=== PATIENT | female | born 1980 | race Caucasian/White ===

== ENCOUNTER → 2018-11-30 17:00 | Outpatient (CLI) | payer OTHER, SELFPAY ==
--- NOTE | 2018-11-30 17:00 | FLU_PTH ---
PATIENT: LEDY DIETRICH [id number] AGE/SX: 44/F ROOM: RE11/30/[address]: Dr. Kevin Sheets MD : 1980 BED: DIS: SPEC #: [id number] RECD: 11/30/18 17:46 STATUS: JOSE CARLOS GEORGINA #: [id number] RENITA: 11/30/18 17:[address]: Kevin Sheets DEPT: CYTOLOGY RECD BY: Juan Luis Love Tissues: A - Thyroid gland, NOS B - Thyroid gland, NOS Procedures: Special Stain Group II Surgery Specimen Level IV Cytospin Fluid HEADER OPERATION: Right thyroid FNA; Left thyroid FNA PRE-OP DIAGNOSIS: Dominant nodule in Katherin's TISSUE SUBMITTED: A - FNA, right thyroid fluid for cytology, B - FNA, left thyroid fluid for cytology DIAGNOSIS CYTOLOGY A. Right thyroid nodule fluid for cytology, FNA (cytospin and cell block): Consistent with chronic lymphocytic thyroiditis. Adequate for evaluation. See cytology study and comment. B. Left thyroid nodule fluid for cytology, FNA (cytospin and cell block): Consistent with chronic lymphocytic thyroiditis. Adequate for evaluation. See cytology study and comment. SJ:rg 12/02/18 COMMENT Correlation with clinical, radiologic findings and appropriate follow up are necessary. CYTOLOGY STUDY Slides are reviewed. A. The specimen is paucicellular, however, adequate for evaluation and consists of benign follicular cells with focal H?rthle cell features and lymphocytes. B. The specimen is cellular and consists of benign follicular cells with H?rthle cell features and lymphocytes. CYTOLOGY GROSS A - Received is 38 ml of clear colorless fluid labeled with the patient's name and and designated per the requisition as right thyroid. Submitted for cytology preparation including cell block. B - Received is 40 ml of clear colorless fluid labeled with the patient's name and and designated per the requisition as left thyroid. Submitted for cytology preparation including cell block. / 12/01/18 TC:3 CPT: 22567 x2, 72225 x2
== END ==
PROVIDERS: Referring Provider Otolaryngology; Visit Provider Otolaryngology
DX: E04.1 Nontoxic single thyroid nodule (principal); E06.3 Autoimmune thyroiditis
CPT/HCPCS: 88108; 88305; 88313

== ENCOUNTER 2020-10-10 15:30 | Observation (INO) | payer OTHER, SELFPAY ==
[2019-04-30 07:47] VITALS: BMI 38.2
[2020-10-10] VITALS (9 sets, daily range): BP systolic 82–139; BP diastolic 50–88; PULSE 77–101; RESP 15–80; TEMP 35.6–36.9; O2SAT 95–100; BMI 44.2; BMI 42.8
--- NOTE | 2020-10-10 15:44 | CT_ITS ---
STUDY: CT ABDOMEN AND PELVIS WITH CONTRAST REASON FOR EXAM: Female, 40 years old. Right lower quadrant pain nausea vomiting elevated white count RADIATION DOSAGE (If Supplied By Facility): CTDIvol = ( 15.19 ) mGy, DLP = ( 1343.07 ) mGycm TECHNIQUE: CT images were obtained from the dome of the diaphragm to the symphysis pubis without oral contrast. Oral and amp; IV Gastrografin and amp; 100mL Isovue-300 was administered. Sagittal and coronal images were reconstructed. Individualized dose optimization techniques were used for this CT. COMPARISON: None. FINDINGS: The visualized lung bases are unremarkable. The visualized portions of the heart are within normal limits. Normal liver. Normal gallbladder and extrahepatic biliary system. Normal spleen. Normal pancreas. Normal bilateral adrenal glands. Normal right kidney. Normal left kidney. Appendix is inflamed with mild surrounding mesenteric inflammation without fluid collections. Normal abdominal aorta. Normal inferior vena cava. Normal retroperitoneum. Normal urinary bladder. Normal abdominal wall. Normal osseous structures. CT/Abdomen/Pelvis WITH Contrast IMPRESSION: 1. Early appendicitis, no perforation or abscess. Electronically Signed: Vel Zuluaga, at 18:26 EST Tel , Service support ,
--- NOTE | 2020-10-10 15:46 | ED.VIS.GEN ---
History of Present Illness Chief Complaint: Abd Pain Informant: Patient Narrative: 40-year-old female presenting for the evaluation abdominal pain. Patient states that she woke today around 5 feeling fine. She got a aerobic workout and finished around 530. She states that around 7 she began to feel nauseated then developed pain around her umbilicus that has now migrated to the right lower quadrant. She notes vomiting. She notes some anorexia. No fevers. No prior abdominal surgeries. No history of ovarian cyst. No urinary symptoms. Past Medical History - Allergies and Home Meds Allergies/Adverse Reactions: Allergies Penicillins Allergy (Unknown, Verified 10/10/20 15:30) other shellfish derived Allergy (Unknown, Verified 10/10/20 15:30) Other Past Medical History: None Smoking Status: Never smoker Drugs: None - Family History Maternal Family History: Reports: No pertinent history Review of Systems General: Denies: Chills, Fever, Sweats Eyes: Denies: Visual changes - bilaterally, Diplopia ENT: Denies: Rhinorrhea, Sore throat Cardiovascular: Denies: Chest pain, Palpitations Respiratory: Denies: Dyspnea, Cough, Dyspnea on exertion Gastrointestinal: Reports: Abdominal pain, Nausea, Vomiting. Denies: Diarrhea, Melena, Hematochezia Genitourinary: Denies: Dysuria, Hematuria, Frequency Musculoskeletal: Denies: Back pain, Extremity Pain Skin: Denies: Rash, Wounds Neurological: Denies: Headache, Weakness, Numbness Physical Exam Vital Signs/Narrative: Vital Signs Temp Pulse Resp BP Pulse Ox 10/10/20 15:31 96.0 F L 86 16 139/88 H 96 Inital Vital Signs reviewed: Yes General: Well nourished, Well developed, No Acute Distress Head: Normocephalic, Atraumatic Eyes: Perrl, EOMI ENT: Moist mucous membranes, No rhinorrhea Neck: Supple, Nontender Cardiovascular: Regular rate, Regular rhythm, No murmurs Respiratory: No distress, CTA bilaterally, Chest nontender Abdomen: Soft, Nondistended, Normal bowel sounds, Tender - RLQ, Guarding Back: Nontender, Normal Inspection Extremities: Nontender, No edema Skin: Normal color, No rash Neurological: Alert, Oriented x3, Cranial nerves II-XII grossly intact, Normal Strength, Normal Sensation Psychological: Normal affect, Normal Mood Diagnostic/Tx/Re-eval Clinical Impression(s) from Imaging Studies Abdomen/Pelvis CT 10/10/20 15:44 IMPRESSION: 1. Early appendicitis, no perforation or abscess. Electronically Signed: Vel Zuluaga, at 18:26 EST Tel , Service support , Laboratory Last Values WBC 17.7 K/mm3 (4.4-11.0) H 10/10/20 15:50 RBC 4.50 M/mm3 (4.2-5.4) 10/10/20 15:50 Hgb 13.0 g/dL (12.0-15.0) 10/10/20 15:50 Hct 39.2 % (37-47) 10/10/20 15:50 MCV 87.1 fL (81-99) 10/10/20 15:50 MCH 28.9 pg (27.0-32.0) 10/10/20 15:50 MCHC 33.2 g/dL (32-36) 10/10/20 15:50 RDW Std Deviation 39.8 fl (35.1-43.9) 10/10/20 15:50 RDW Coeff of Sheree 12.5 % (11.6-14.6) 10/10/20 15:50 Plt Count 318 K/mm3 (150-450) 10/10/20 15:50 MPV 10.1 fl (6.2-12.0) 10/10/20 15:50 Immature Gran % (Auto) 0.500 % (0.0-0.9) 10/10/20 15:50 Neut % (Auto) 84.0 % (47-70) H 10/10/20 15:50 Lymph % (Auto) 9.6 % (19-41) L 10/10/20 15:50 [place] % (Auto) 5.4 % (0-10) 10/10/20 15:50 Eos % (Auto) 0.2 % (0-5) 10/10/20 15:50 Baso % (Auto) 0.3 % (0-1) 10/10/20 15:50 Absolute Neuts (auto) 14.9 X10^3/uL (2.0-7.7) H 10/10/20 15:50 Absolute Lymphs (auto) 1.69 X10^3/uL (0.83-4.51) 10/10/20 15:50 Nucleated RBC % 0 % (0-5) 10/10/20 15:50 Sodium 138 mmol/L (136-145) 10/10/20 15:50 Potassium 3.9 mmol/L (3.5-5.1) 10/10/20 15:50 Chloride 105 mmol/L (98-107) 10/10/20 15:50 Carbon Dioxide 27.0 mmol/L (21.0-32.0) 10/10/20 15:50 Anion Gap 6 (5-15) 10/10/20 15:50 BUN 9 mg/dL (7-18) 10/10/20 15:50 Creatinine 0.83 mg/dL (0.55-1.02) 10/10/20 15:50 Estim Creat Clear Calc 96.04 ml/min 10/10/20 15:50 Est GFR (MDRD) Af Amer 99 mL/min (>60) 10/10/20 15:50 Est GFR (MDRD) Non-Af 82 mL/min (>60) 10/10/20 15:50 BUN/Creatinine Ratio 10.8 RATIO (10-20) 10/10/20 15:50 Glucose 101 mg/dL (74-106) 10/10/20 15:50 Calcium 8.9 mg/dL (8.5-10.1) 10/10/20 15:50 Total Bilirubin 0.40 mg/dL (0.20-1.00) 10/10/20 15:50 Direct Bilirubin 0.16 mg/dL (0.00-0.30) 10/10/20 15:50 AST 11 U/L (15-37) L 10/10/20 15:50 ALT 23 U/L (13-56) 10/10/20 15:50 Alkaline Phosphatase 58 U/L (45-117) 10/10/20 15:50 Total Creatine Kinase 104 U/L (26-192) 10/10/20 15:50 Total Protein 7.5 g/dL (6.4-8.2) 10/10/20 15:50 Albumin 3.7 g/dL (3.2-5.0) 10/10/20 15:50 Globulin 3.8 g/dL (2.2-4.2) 10/10/20 15:50 Lipase 242 U/L (73-393) 10/10/20 15:50 Serum , Qual NEGATIVE Negative 10/10/20 15:50 Urine Color Yellow (Yellow) 10/10/20 16:00 Urine Clarity Clear (Clear) 10/10/20 16:00 Urine pH 8.0 (5.0 - 8.0) 10/10/20 16:00 Ur Specific [place] 1.010 (1.002-1.030) 10/10/20 16:00 Urine Protein Negative mg/dl (Negative) 10/10/20 16:00 Urine Glucose (UA) Normal mg/dl (Normal) 10/10/20 16:00 Urine Ketones Negative mg/dl (Negative) 10/10/20 16:00 Urine Occult Blood Negative /ul (Negative) 10/10/20 16:00 Urine Nitrite Negative (Negative) 10/10/20 16:00 Urine Bilirubin Negative mg/dL (Negative) 10/10/20 16:00 Urine Urobilinogen Normal mg/dl (Normal) 10/10/20 16:00 Ur Leukocyte Esterase Negative /ul (Negative) 10/10/20 16:00 Urine RBC 0 SEEN /hpf (0-5) 10/10/20 16:00 Urine WBC 0 SEEN /hpf (0-5) 10/10/20 16:00 Ur Squamous Epith Cells 0-5 SEEN /hpf (5-10) 10/10/20 16:00 Urine Bacteria 0 SEEN /hpf (None Seen) 10/10/20 16:00 Urine Mucus 0 SEEN /hpf (<or=2+) 10/10/20 16:00 - Medical Decision Making Patient received IV fluids. White count shows a leukocytosis of 17. CT the pelvis with oral and IV contrast was ordered and upon my review demonstrates an appendicolith with early appendicitis. Patient was not initially given pain medicine because she is driving and did not have another way home. Now that she will be admitted I will order pain medication. I will also order Cipro and Flagyl preoperatively due to her pen allergy. Patient was assessed by surgery here in the department by Dr. Mcdaniels ED Disposition - Plan for ED Patient: Disposition: [facility] Diagnosis: Acute appendicitis
[2020-10-10] MEDS: Ondansetron 4 MG/2 ML Vial IV (15:59)
[2020-10-10] MEDS: 0.9% Normal Saline 1,000 ML 999 ML IV (15:59)
[2020-10-10 16:02] LABS: Absolute Lymphocyte Count 1.69 X10^3/uL (0.83-4.51); Absolute Neutrophil Count 14.9 X10^3/uL (2.0-7.7); Basophil# 0.06 X10^3/uL; Basophil% 0.3 % (0-1); Eosinophil# 0.04 X10^3/uL; Eosinophils% 0.2 % (0-5); Hematocrit 39.2 % (37-47); Lymphocyte # 1.69 X10^3/ul (4.0); Lymphocyte % 9.6 % (19-41); Mean Corp Hgb Conc 33.2 g/dL (32-36); Mean Corpuscular Hgb 28.9 pg (27.0-32.0); Mean Corpuscular Volume 87.1 fL (81-99); Mean Platelet Vol. 10.1 fl (6.2-12.0); Monocyte# 0.95 X10^3/uL; Monocyte% 5.4 % (0-10); NRBC Flagged by Analyzer 0 % (0-5); Neutrophil # 14.86 X10^3/uL (2.7-7.7); Platelet Count 318 K/mm3 (150-450); RBC Distribution Width CV 12.5 % (11.6-14.6); RBC Distribution Width SD 39.8 fl (35.1-43.9); White Blood Count 17.7 K/mm3 (4.4-11.0)
[2020-10-10 16:07] LABS: Bacteria 0 SEEN /hpf (None Seen); Mucous, Urine 0 SEEN /hpf (<or=2+); Red Blood Cells-Urine 0 SEEN /hpf (0-5); White Blood Cells 0 SEEN /hpf (0-5)
[2020-10-10 16:16] LABS: Color, Urine Yellow (Yellow); Glucose, Dipstick Normal (Normal); Ketone-Dipstick Negative (Negative); Leukocyte Esterase-Dipstick Negative /ul (Negative); Nitrite-Dipstick Negative (Negative); Occult Blood-Urine Negative /ul (Negative); Protein-Dipstick Negative (Negative); Urine Bilirubin Dipstick Negative (Negative); Urine Clarity Clear (Clear); Urine Urobilinogen Normal (Normal)
[2020-10-10 16:17] LABS: AST(SGOT) 11 U/L (15-37); Alanine Aminotransfer ALT/SGPT 23 U/L (13-56); Albumin, Serum 3.7 g/dL (3.2-5.0); Alkaline Phosphatase 58 U/L (45-117); Anion Gap 6 (5-15); BUN 9 mg/dL (7-18); BUN/Creat Ratio 10.8 RATIO (10-20); Bilirubin, Direct 0.16 mg/dL (0.00-0.30); Calcium,Total 8.9 mg/dL (8.5-10.1); Chloride 105 mmol/L (98-107); Creatinine, Serum 0.83 mg/dL (0.55-1.02); EST Glomerular Filtration Rate 82 mL/min (>60); Est Glom Filt Rate - Afr Amer 99 mL/min (>60); Estimated Creatinine Clearance 96.04 ml/min; Globulin 3.8 g/dL (2.2-4.2); Glucose 101 mg/dL (74-106); Lipase 242 U/L (73-393); Potassium 3.9 mmol/L (3.5-5.1); Protein, Total 7.5 g/dL (6.4-8.2); Sodium Level 138 mmol/L (136-145)
[2020-10-10 16:22] LABS: Squamous Epithelial Cells - UA 0-5 SEEN /hpf (5-10)
[2020-10-10 16:40] LABS: Internal QC Validated? YES +Cl - CLEAR BKGD
[2020-10-10 16:41] LABS: Pregnancy, Serum, hCG Quali. NEGATIVE Negative
[2020-10-10 17:28] LABS: CPK Total, Creatine Kinase 104 U/L (26-192)
--- NOTE | 2020-10-10 18:11 | HP.PCM_ITS ---
History of Present Illness Date of Admission: 10/10/20 The patient is a 40 year old F return to the ER due to periumbilical pain that went to the right lower quadrant started at 7 AM this morning got worse at 9 AM had nausea and vomiting. Patient's pain continued to get worse. Patient CT abdomen pelvis does show a thickened appendix read currently pending. Patient has a white blood count of 17.7. Patient is receiving antibiotics in the ER Cipro/Flagyl IV. 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 Allergies Penicillins Allergy (Unknown, Verified 10/10/20 15:30) other shellfish derived Allergy (Unknown, Verified 10/10/20 15:30) Other Home Medications: Ambulatory Orders Medication Instructions Recorded NK 10/10/20 Surgical History: no surgical history Smoking Status: Never smoker Drugs: None - *Family History Maternal History Items: No pertinent history Review of Systems Constitutional: Reports: Anorexia Cardiovascular: Denies: Chest Pain Respiratory: Denies: Cough VTE Information - Inpt Only VTE Present on Admission: Yes VTE Mechan Device Prophylaxis: SCD's Patient Problems: Active and Suspected Problems (Last Updated 04/30/19 @ 07:51 by Vangie Sutton) Acute appendicitis (Acute) - Physical Exam Vitals/I&O's: Vital Signs Temp Pulse Resp BP Pulse Ox 96.0 F L 86 16 139/88 H 96 10/10/20 15:31 10/10/20 15:31 10/10/20 15:31 10/10/20 15:31 10/10/20 15:31 Oxygen Delivery Method Room Air Weight: 299 lb 9.731 oz Body Mass Index (BMI) 44.2 General: Alert, Oriented x3, Cooperative, - - in pain Lungs: Normal air movement Abdomen: Soft, Non-Distended, Obese, Tender - Right lower quadrant, positive Rovsing sign, no peritoneal signs Extremities: No clubbing, No cyanosis, No edema Neurological: Cranial nerves II-XII grossly intact Psych/Mental Status: Normal Affect Laboratory Results 10/10/20 15:50: WBC 17.7 H, RBC 4.50, Hgb 13.0, Hct 39.2, MCV 87.1, MCH 28.9, MCHC 33.2, RDW Std Deviation 39.8, RDW Coeff of Sheree 12.5, Plt Count 318, MPV 10.1, Immature Gran % (Auto) 0.500, Neut % (Auto) 84.0 H, Lymph % (Auto) 9.6 L, [place] % (Auto) 5.4, Eos % (Auto) 0.2, Baso % (Auto) 0.3, Absolute Neuts (auto) 14.9 H, Absolute Lymphs (auto) 1.69, Nucleated RBC % 0 10/10/20 15:50: Sodium 138, Potassium 3.9, Chloride 105, Carbon Dioxide 27.0, Anion Gap 6, BUN 9, Creatinine 0.83, Estim Creat Clear Calc 96.04, Est GFR (MDRD) Af Amer 99, Est GFR (MDRD) Non-Af 82, BUN/Creatinine Ratio 10.8, Glucose 101, Calcium 8.9, Total Bilirubin 0.40, Direct Bilirubin 0.16, AST 11 L, ALT 23, Alkaline Phosphatase 58, Total Protein 7.5, Albumin 3.7, Globulin 3.8, Lipase 242 10/10/20 15:50: Serum , Qual NEGATIVE 10/10/20 15:50: Total Creatine Kinase 104 10/10/20 16:00: Urine Color Yellow, Urine Clarity Clear, Urine pH 8.0, Ur Specific [place] 1.010, Urine Protein Negative, Urine Glucose (UA) Normal, Urine Ketones Negative, Urine Occult Blood Negative, Urine Nitrite Negative, Urine Bilirubin Negative, Urine Urobilinogen Normal, Ur Leukocyte Esterase Negative, Urine RBC 0 SEEN, Urine WBC 0 SEEN, Ur Squamous Epith Cells 0-5 SEEN, Urine Bacteria 0 SEEN, Urine Mucus 0 SEEN Current Medications Sodium Chloride () 1,000 mls @ 250 mls/hr IV .Q4H LINA Ciprofloxacin (Cipro) 400 mg in 200 mls @ 200 mls/hr IV X1 ONE Stop: 10/10/20 19:08 Metronidazole (Flagyl) 500 mg in 100 mls @ 100 mls/hr IV X1 ONE Stop: 10/10/20 19:08 Assessment/Plan All Active Problems (Last Updated 04/30/19 @ 07:51 by Vangie Sutton) Acute appendicitis (Acute) Cat bite of index finger (Acute) 40-year-old female with acute appendicitis, leukocytosis 1. Discussed procedure laparoscopic appendectomy, possible open, possible bowel resection along with the risk but not limited to bleeding, infection/abscess, injury to another organ (small bowel, colon, etc.), adhesion, hernia at incision sites, and anesthesia. Patient no further questions this time. Covid test is pending Dilia Mcdaniels M.D. Pager: [phone] [facility] [address] [place] [address], [address] [place] [address] Office: [phone]
[2020-10-10] MEDS: 0.9% Normal Saline 1,000 ML 250 ML IV (18:17)
[2020-10-10] MEDS: Morphine 4 MG/ML Syringe IV (18:17)
--- NOTE | 2020-10-10 18:19 | NURSING ---
MED SURG, AFTER SURGERY OBS ROBOTHEM APPENDICITIS
[2020-10-10] MEDS: Ciprofloxacin 400 MG/200 ML BAG 200 MG IV (18:31)
--- NOTE | 2020-10-10 19:15 | APP_PTH ---
PATIENT: LEDY DIETRICH LOC: [facility] U#:[id number] AGE/SX: 40/F ROOM: AR314 RE10/10/[address]: Dr. Dilia Mcdaniels MD : 1980 BED: 1 DIS: 10/11/2020 SPEC #: [id number] RECD: 10/11/20 07:34 STATUS: JOSE CARLOS REFaye #: [id number] RENITA: 10/10/20 19:[address]: Dilia Mcdaniels DEPT: SURGICAL PATHOLOGY RECD BY: Shreya Zhou ENTERED: 10/11/20 08:25 SP TYPE: APPENDIX OTHR DR: No Primary Care Phys Tissues: Appendix, NOS Procedures: Surgery Specimen Level III HEADER OPERATION: Laparoscopic appendectomy PRE-OP DIAGNOSIS: Acute appendicitis TISSUE SUBMITTED: Appendix MICROSCOPIC DIAGNOSIS Appendix, appendectomy: Acute appendicitis. Acute serositis. AM:eliu 10/12/2020 MICROSCOPIC DESCRIPTION Slides are reviewed. GROSS DESCRIPTION Received in fixative is one container labeled with the patient's name and designated appendix. The specimen consists of an L-shaped appendix measuring 6 cm in length and up to 1 cm in diameter. The attached periappendiceal adipose tissue measures up to 1.5 cm in width. The serosa surface shows focal area of aguero, purulent exudate. No obvious perforation is identified. The lumen contains fecal material. No fecalith is identified. Clock Mechanic sections are submitted in one cassette. / SJ:rg 10/11/2020 :2 [facility]: [id number]
[2020-10-10] MEDS: metroNIDAZOLE 500 MG/100 ML BAG 100 MG IV (19:40)
--- NOTE | 2020-10-10 20:25 | OP.PCM_ITS ---
Report of Operation Date of Procedure: 10/10/20 Pre-Operative Diagnosis: Acute appendicitis Post-Operative Diagnosis: Acute perforated appendicitis Surgery/Procedure Performed:: Laparoscopic appendectomy convenience store clerk: Zainab Avalos Type of Anesthesia:: General/Supplemental Anesthesiologist: Carrie Yanes Special Medications: Cipro 400 mg IV x1 and Flagyl 500 mg IV x1 given in ER due to acute appendicitis Specimen's removed: Appendicitis Estimated Blood Loss (mL): 10 cc Fluids Replaced: 500 cc Description of Procedure: Indications: 40-year-old female presented to the ER with new right lower quadrant pain this morning. On workup she was found to have acute appendicitis on CT and a leukocytosis of 17. Patient was started on antibiotics in the ER for acute appendicitis-Cipro/Flagyl IV Description of the procedure: The patient was placed on operating table in supine position. General anesthesia was induced. A timeout was completed verifying correct patient, procedure, position and special equipment prior to beginning procedure. Abdomen was prepped and draped in usual sterile fashion. Incision was made in the natural skin line above the umbilicus with a 15 blade scalpel. The fascia was elevated and incised. Entry into the peritoneum was confirmed visually and no bowel was noted in the vicinity of the incision. The Olguin trocar was placed under direct vision. Abdomen insufflated with a pressure of 12-15 mmHg. Patient tolerated insertion well. The scope was inserted and the abdomen inspected. No injuries from initial trocar placement were noted. Minimal amount of fluid was seen in the right lower quadrant. An direct visualization 2 -5 mm trocars were placed one above the symphysis pubis and below the hairline and one in the left lower quadrant lateral to the rectus muscle. Care is taken to avoid injury to the bladder and inferior epigastric vessels. The table was placed in Trendelenburg position with the right side elevated. The appendix was grasped with atraumatic grasper and elevated. It was noted to be inflamed and perforated with purulent material, which was suctioned. A window was developed in the mesoappendix at the point between the base of the appendix and the cecum. An endoscopic 45 mm linear cutting stapler blue load was then used to divide and staple the base of the appendix. It was used to divide the mesoappendix. The appendix was withdrawn into the Olguin trocar after being placed endoscopically retrieval bag. Appendix was sent to pathology. The appendiceal stump was then irrigated and hemostasis was assured. Secondary trochars were removed under direct visualization. No bleeding was noted trocar sites. The laparoscope withdrawn and the umbilical trocar removed. The abdomen was allowed to collapse. Local anesthesia of 15 mL of 0.5% Marcaine was used at the incision sites. The umbilical trocar site was closed with the [id number] 0 Vicryl suture. The skin was closed up to clear sutures of 4-0 Monocryl and Steri-Strips. The patient was extubated. The patient tolerated the procedure well and was taken to the postanesthesia care unit in satisfactory condition. - Complications none
[2020-10-10] MEDS: Bupiv/Epi 0.5% Mpf 30 ML Vial (20:27)
[2020-10-10] MEDS: Lactated Ringers 1,000 ML 125 ML IV (22:36)
[2020-10-11 01:45] VITALS: BP 105/67; PULSE 70; RESP 16; TEMP 36.7; O2SAT 93
[2020-10-11] MEDS: Ciprofloxacin 400 MG/200 ML BAG 200 MG IV (05:51)
[2020-10-11] MEDS: metroNIDAZOLE 500 MG/100 ML BAG 100 MG IV (06:55)
[2020-10-11] MEDS: Lactated Ringers 1,000 ML 125 ML IV (06:58)
[2020-10-11 07:00] VITALS: BP 132/71; PULSE 70; RESP 16; TEMP 36.3; O2SAT 93
[2020-10-11 07:59] VITALS: BP 120/65; PULSE 56; RESP 18; TEMP 37; O2SAT 93
--- NOTE | 2020-10-11 08:47 | PCM.PN.SRG ---
Patient Problems: Active and Suspected Problems (Last Updated 04/30/19 @ 07:51 by Vangie Sutton) Acute appendicitis (Acute) Subjective: Pt doing well, jackson PO, denies need for pain meds - Physical Exam Vitals/I&O's: Vital Signs Temp Pulse Resp BP Pulse Ox 98.6 F 56 L 18 120/65 93 10/11/20 07:59 10/11/20 07:59 10/11/20 07:59 10/11/20 07:59 10/11/20 07:59 Oxygen Flow Rate (L/min) 2 Oxygen Delivery Method Room Air Weight: 290 lb Body Mass Index (BMI) 42.8 Intake and Output for Last 24 Hours 10/09/20 10/10/20 10/11/20 23:59 23:59 23:59 Intake Total 2300 / 2300 1200 / 1200 Output Total 1000 / 1000 Balance 2300 / 2300 200 / 200 General: Alert, Oriented x3, Cooperative, No apparent distress Lungs: Normal air movement Cardiovascular: Regular rate Abdomen: Soft, Non-Distended, Tender - at incisions- dressed c/d/i, no PS Microbiology Past 72 Hours 10/10/20 Unknown Mucosa - Nose SARS-CoV-2 Antigen (Rapid) - Final Laboratory Results 10/10/20 15:50: WBC 17.7 H, RBC 4.50, Hgb 13.0, Hct 39.2, MCV 87.1, MCH 28.9, MCHC 33.2, RDW Std Deviation 39.8, RDW Coeff of Sheree 12.5, Plt Count 318, MPV 10.1, Immature Gran % (Auto) 0.500, Neut % (Auto) 84.0 H, Lymph % (Auto) 9.6 L, [place] % (Auto) 5.4, Eos % (Auto) 0.2, Baso % (Auto) 0.3, Absolute Neuts (auto) 14.9 H, Absolute Lymphs (auto) 1.69, Nucleated RBC % 0 10/10/20 15:50: Sodium 138, Potassium 3.9, Chloride 105, Carbon Dioxide 27.0, Anion Gap 6, BUN 9, Creatinine 0.83, Estim Creat Clear Calc 96.04, Est GFR (MDRD) Af Amer 99, Est GFR (MDRD) Non-Af 82, BUN/Creatinine Ratio 10.8, Glucose 101, Calcium 8.9, Total Bilirubin 0.40, Direct Bilirubin 0.16, AST 11 L, ALT 23, Alkaline Phosphatase 58, Total Protein 7.5, Albumin 3.7, Globulin 3.8, Lipase 242 10/10/20 15:50: Serum , Qual NEGATIVE 10/10/20 15:50: Total Creatine Kinase 104 10/10/20 16:00: Urine Color Yellow, Urine Clarity Clear, Urine pH 8.0, Ur Specific [place] 1.010, Urine Protein Negative, Urine Glucose (UA) Normal, Urine Ketones Negative, Urine Occult Blood Negative, Urine Nitrite Negative, Urine Bilirubin Negative, Urine Urobilinogen Normal, Ur Leukocyte Esterase Negative, Urine RBC 0 SEEN, Urine WBC 0 SEEN, Ur Squamous Epith Cells 0-5 SEEN, Urine Bacteria 0 SEEN, Urine Mucus 0 SEEN Current Medications Acetaminophen (Acetaminophen 325 Mg Tablet) 650 mg PO Q6H PRN PRN PRN Reason: Pain Score 1-10 Lactated Ringer's () 1,000 mls @ 125 mls/hr IV .Q8H LINA Last Admin: 10/11/20 06:58 Dose: 125 mls/hr Documented by: Sodium Chloride () 250 mls @ 15 mls/hr IV .[id number] PRN PRN Reason: Saline Flush Sodium Chloride () 250 mls @ 15 mls/hr IV .[id number] PRN PRN Reason: Additional IVPB Infusion Morphine Sulfate (Morphine 2 Mg/Ml Syringe) 2 - 4 mg IV Q2H PRN PRN PRN Reason: Pain Score 1-10 Morphine Sulfate (Morphine 4 Mg/Ml Syringe) 2 - 4 mg IV Q2H PRN PRN PRN Reason: Pain Score 1-10 Ondansetron HCl (Ondansetron 4 Mg/2 Ml Vial) 4 mg IV Q8H PRN PRN PRN Reason: NAUSEA Oxycodone HCl (Oxycodone 5 Mg Tablet) 5 - 10 mg PO Q4H PRN PRN PRN Reason: Pain Score 1-10 Sodium Chloride (0.9% Saline Lock 10 Ml Syringe) 10 - 40 ml IV UD PRN PRN Reason: SALINE FLUSH Medical Necessity - Tobacco Use Smoking Status: Never smoker Assessment/Plan All Active Problems (Last Updated 04/30/19 @ 07:51 by Vangie Sutton) Acute appendicitis (Acute) Cat bite of index finger (Acute) 40-year-old female with acute appendicitis,POD1 lap appy 1. if jackson po, amb, vss, pain controlled ok to d/c Dilia Mcdaniels M.D. Pager: [phone] [facility] [address] [place] [address], [address] [place] [id number] Office: [phone]
--- NOTE | 2020-10-11 08:48 | DCINST_ITS ---
Discharge Diet: Light diet - advance as tolerated Discharge Activity: May not drive while taking narcotic pain medications. May shower in (days): 1 Lifting Restrictions: no lifting > 20 lb x 2 week, no strenuous exercise for 4 weeks Call your doctor if your incision/area has: Continuous Slow Oozing, Sudden Increased Bleeding, Increased Pain/ Swelling, Increased Redness, Foul Smelling Discharge, Swelling at the incision site Call your doctor if you observe: Fever of 101 or Higher Remove Dressing in (days):: 1 - Okay to remove op sites tomorrow, Steri-Strips were sent for 7 to 10 days from surgery if did not fall off in 10 days okay to remove Additional Instructions: Okay to take ibuprofen 400-600 mg PO q6hr PRN along with the Percocet. Avoid/Caution if taking Tylenol since there is already Tylenol in the Percocet. Take all pain meds with food. Percocet can cause constipation recommend taking daily stool softener (i.e. Colace/docusate) while taking the pain meds. Recommend starting some MiraLAX in 1-2 days if no bowel movement. If still no bowel movement the following day recommend taking magnesium citrate half the bottle and waiting 4-6 hours if still no results take the other half the bottle. Medications to take at Discharge Ciprofloxacin [Cipro] 500 mg PO BID #4 tab 10/11/20 Oxycodone HCl/Acetaminophen [Percocet 5/325] 1 - 2 tab PO Q6H PRN PRN 2 Days #10 tab 10/11/20 metroNIDAZOLE [Flagyl] 500 mg PO Q8H #6 tab 10/11/20 Allergies/Adverse Reactions: Allergies Penicillins Allergy (Unknown, Verified 10/10/20 15:30) other shellfish derived Allergy (Unknown, Verified 10/10/20 15:30) Other The following prescriptions were given: Ciprofloxacin [Cipro] 500 mg PO BID #4 tab Transmission Status: Pending to [facility] metroNIDAZOLE [Flagyl] 500 mg PO Q8H #6 tab Transmission Status: Pending to [facility] Oxycodone HCl/Acetaminophen [Percocet 5/325] 1 - 2 tab PO Q6H PRN PRN 2 Days #10 tab PRN Reason: Pain Transmission Status: Received by [facility] Primary Care Physician: NOT,DEFINED [NON-STAFF] - Test Results: Test results from this visit will be discussed in further detail at your follow- up appointment, if applicable. Please Follow Up With: Dilia Mcdaniels MD - After 5 PM and on the weekends call [phone] with any concerns When: call office for f/u appt 2 weeks Proposed Discharge Date: 10/11/20
--- NOTE | 2020-10-11 11:09 | PHA.DC.MC ---
Pharmacy Service has performed discharge medication reconciliation and counseling for this patient. 1. CIPROFLOXACIN 500MG PO BID X 2 DAYS 2. METRONIDAZOLE 500MG PO Q8H X 2 DAYS 3. OXYCODONE/ACETAMINOPHEN 5/325MG PO Q6H PRN PAIN The patient's discharge medication list was reviewed for discrepancies and discrepancies were resolved. Home Medications Ciprofloxacin [Cipro] 500 mg PO BID #4 tab 10/11/20 Oxycodone HCl/Acetaminophen [Percocet 5/325] 1 - 2 tab PO Q6H PRN PRN 2 Days #10 tab 10/11/20 metroNIDAZOLE [Flagyl] 500 mg PO Q8H #6 tab 10/11/20 The patient was counseled on the following discharge medications and changes in medications for homegoing were reviewed. The Reason for Use, instructions for use, and potential side effects were reviewed for all new medications. The patient's questions regarding all of their medications were answered. The patient was able to verbally demonstrate an understanding of their discharge medications.
[2020-10-11 13:50] VITALS: BP 124/85; PULSE 56; RESP 18; TEMP 36.6; O2SAT 97
== END 2020-10-11 14:02 | disposition home or self-care (01) ==
LOC: ED 18:10 → SDC 18:18 → MS3 10-11 08:48 → SDC 10-11 09:05
PROVIDERS: Admitting Provider Surgery; Emergency Provider Emergency Medicine; Referring Provider Surgery; Visit Provider Surgery
PROC: 0DTJ4ZZ Resection of Appendix, Percutaneous Endoscopic Approach (ICD-10-PCS; CPT 44970; principal; 2020-10-10 19:15)
DX: K35.32 Acute appendicitis with perforation, localized peritonitis, and gangrene, without abscess (principal); E06.3 Autoimmune thyroiditis; E66.01 Morbid (severe) obesity due to excess calories; Z68.41 Body mass index [BMI] 40.0-44.9, adult
CPT/HCPCS: 44970; 74177; 80048; 80076; 81001; 82550; 83690; 84703; 85025; 87426; 88304; 96361; 96365; 96367; 96375; 99218; 99251; 99283; J7030; J7120; Q9967; A4216; C1760; G0378; G0463; J0744; J2405

== ENCOUNTER 2020-10-21 07:46 | Emergency (ER) | payer OTHER, SELFPAY ==
[2020-10-10 21:51] VITALS: BMI 42.8
[2020-10-21 07:47] VITALS: BP 104/80; PULSE 104; RESP 20; TEMP 37; O2SAT 96; BMI 42.8
--- NOTE | 2020-10-21 08:12 | EKG12_ITS ---
Test Reason : Blood Pressure : / mmHG Vent. Rate : 086 BPM Atrial Rate : 086 BPM P-R Int : 146 ms QRS Dur : 072 ms QT Int : 354 ms P-R-T Axes : 044 -11 014 degrees QTc Int : 423 ms Normal sinus rhythm Low voltage QRS Borderline ECG Confirmed by OBED SOLIMAN MD ([id number]), supervising film or videotape editor MISTI RIZVI ([id number] on 10/25/2020 6:49:14 AM Referred By: SPENCER Confirmed By:OBED SOLIMAN MD
--- NOTE | 2020-10-21 08:13 | CT_ITS ---
We are attempting to reach an attending provider to discuss findings. An addendum with communication details will be sent when the communication is complete. STUDY: CTA CHEST REASON FOR EXAM: Female, 40 years old. PE? APPENDECTOMY 2 WEEKS AGO. RIGHT SIDED CHEST PAIN RADIATION DOSAGE (If Supplied By Facility): CTDIvol = ( 15.04 ) mGy, DLP = ( 412.71 ) mGycm TECHNIQUE: The examination was performed with the intravenous administration of IV 100mL Isovue-370. Post-processing of the angiographic images was performed, with multiplanar reformation and 3D reconstruction. The sagittal coronal views are extremely limited, with artifact throughout. Individualized dose optimization techniques were used for this CT. COMPARISON: None. FINDINGS: There is a marked enlargement of the left-sided thyroid gland partially visualized on this study measuring at least 5.5 x 4.0 x 4.8 cm on the left and 4.8 x 1.3 x 2.6 on the right. There is limited enhancement of the main pulmonary artery and right and left pulmonary arteries. There is a suggestion of filling defects within the right lower lobe branches, and image #73 series 2 allowing for the artifact. There is also suggestion of adjacent filling defect within the pulmonary vein allowing for technique. There is subtle areas of possible streak artifact versus pulmonary embolism within the lung bases. There is no visualized centrally located clot. The study is limited for the evaluation of distal PE. Normal thoracic aorta and visualized great vessels. There is no demonstrated aortic dissection. Normal heart and pericardium. Normal mediastinum. Normal hilar regions. Normal visualized trachea and bronchi. There are scattered areas of artifact and subtle areas of air trapping. Within the right lower lobe there are at least 2 focal areas of groundglass opacity which may represent infection and/or pulmonary infarcts. Normal pleura. Normal chest wall structures. There are degenerative changes of thoracic spine. Normal visualized upper abdomen. CT/CTA Chest W/WO Contrast IMPRESSION: The study is very limited to evaluate for pulmonary embolism. There is study is limited by substantial artifact throughout. Allowing for this there is a suggestion of filling defect within the right lower lobe subsegmental branch possibility of venous thrombus. See image #73 series 2. There are at least 2 focal accompanying groundglass opacities in the right lung base which the differential would include atypical infiltrates, viral infiltrates versus small pulmonary infarcts. There is an overall pattern of artifact and a suggestion of groundglass opacity that is most consistent with air trapping or potentially underlying airways disease. Incidental visualization of an enlarged thyroid gland is detailed above for which further evaluation is recommended with ultrasound and thyroid laboratory values. Electronically Signed: Majo Carrero MD at 9:49 EST Tel , Service support ,
--- NOTE | 2020-10-21 08:20 | ED.DCSUM_ITS ---
- ER Visit Summary Date of Service: 10/21/20 Chief Complaint: Right chest pain History of Present Illness: The patient is a 40 F who presents with right lower chest pain that began this morning. Patient states the pain began suddenly approximately 7 hours prior to arrival. Patient states the pain is over the right lower chest. Patient states the pain radiates into her right lower abdomen. Patient admits to some shortness of breath. Patient states her pain is worse with deep breathing. Patient states nothing seems to help with the pain. Patient had a recent appendectomy 2 weeks ago. Physical Examination: Vital signs are stable except for slight tachycardia of 104. Patient is afebrile. Oral mucosa is pink and moist. Neck is supple. Trachea is midline. There is no JVD. Heart was regular rate and rhythm. Lungs are clear. Respiratory effort was limited secondary to pain. There is no tenderness over the right lower chest. Abdomen is soft. Bowel sounds are normal. There is no tenderness. There is no rebound or guarding noted. Cranial nerves II through XII are intact. There are no focal motor or sensory deficits. Extremities are intact. There is no calf tenderness or edema. Test Results: EKG was obtained. On my interpretation, there is a normal sinus rhythm with a rate of 86. There are no acute ST or T wave changes noted. CBC shows a slight leukocytosis of 11.9. Comprehensive metabolic profile was within normal limits. PT with INR and PTT were normal. Serum hCG was negative. Troponin was normal. CTA of the chest was obtained. There is a small pulmonary embolism in the right lower lobe. There are 2 focal accompanying groundglass opacities in the right lung base which are consistent with pulmonary infarcts. This was interpreted by the radiologist and reviewed by myself. Emergency Department Course and Treatment: Patient was given a dose of morphine here. Patient states this helped. Patient states her pain started to return. Patient was given a dose of oxycodone. Patient was given her first dose of Eliquis here. Patient was given a prescription for Eliquis. Patient was also given a prescription for Percocet. Patient's vital signs remained stable during her emergency department course. I feel the patient is safe to be discharged home. Patient was instructed to follow-up with her primary care physician in 5 to 7 days. Patient was instructed return if worse in any way. Patient understood and was agreeable with the plan. All questions were answered. Disposition: Discharge home Impression: 1. Pulmonary embolism This note was generated with [employer] dictation software. It may contain incorrect words, spelling, and punctuation that were not noted in review of the chart prior to signing ED Disposition - Plan for ED Patient: Disposition: Home or Assisted Living Diagnosis: Pulmonary embolism Instructions: Pulmonary Embolism Prescriptions: Apixaban [Eliquis] 5 mg PO BID #74 tab Prescription Printed Oxycodone HCl/Acetaminophen [Percocet 5/325] 1 tab PO Q6H PRN PRN 3 Days #12 tab PRN Reason: Pain Prescription Printed Referrals: Sergio Tejada MD [STAFF PHYSICIAN] - 3-5 Days
[2020-10-21 08:24] LABS: Absolute Lymphocyte Count 2.38 X10^3/uL (0.83-4.51); Absolute Neutrophil Count 8.5 X10^3/uL (2.0-7.7); Basophil# 0.05 X10^3/uL; Basophil% 0.4 % (0-1); Eosinophil# 0.12 X10^3/uL; Hematocrit 42.8 % (37-47); Hemoglobin 14.2 g/dL (12.0-15.0); Lymphocyte # 2.38 X10^3/ul (4.0); Lymphocyte % 20.1 % (19-41); Mean Corp Hgb Conc 33.2 g/dL (32-36); Mean Corpuscular Hgb 28.4 pg (27.0-32.0); Mean Corpuscular Volume 85.6 fL (81-99); Mean Platelet Vol. 10.4 fl (6.2-12.0); Monocyte# 0.83 X10^3/uL; NRBC Flagged by Analyzer 0 % (0-5); Neutrophil # 8.45 X10^3/uL (2.7-7.7); Neutrophil % 71.3 % (47-70); Platelet Count 346 K/mm3 (150-450); RBC Distribution Width CV 12.1 % (11.6-14.6); RBC Distribution Width SD 38.1 fl (35.1-43.9); White Blood Count 11.9 K/mm3 (4.4-11.0)
[2020-10-21 08:25] VITALS: BP 111/86; PULSE 82; RESP 20
[2020-10-21] MEDS: 0.9% Normal Saline 1,000 ML 1000 ML IV (08:25)
[2020-10-21] MEDS: Morphine 4 MG/ML Syringe IV (08:25)
[2020-10-21 08:37] LABS: Internal QC Validated? YES +Cl - CLEAR BKGD; Pregnancy, Serum, hCG Quali. NEGATIVE Negative
[2020-10-21 08:51] LABS: AST(SGOT) 13 U/L (15-37); Alanine Aminotransfer ALT/SGPT 19 U/L (13-56); Albumin, Serum 3.8 g/dL (3.2-5.0); Alkaline Phosphatase 68 U/L (45-117); Anion Gap 8 (5-15); BUN 10 mg/dL (7-18); BUN/Creat Ratio 12.5 RATIO (10-20); Calcium,Total 9.2 mg/dL (8.5-10.1); Chloride 107 mmol/L (98-107); EST Glomerular Filtration Rate 85 mL/min (>60); Est Glom Filt Rate - Afr Amer 103 mL/min (>60); Estimated Creatinine Clearance 99.64 ml/min; Globulin 3.8 g/dL (2.2-4.2); Glucose 95 mg/dL (74-106); Potassium 4.3 mmol/L (3.5-5.1); Protein, Total 7.6 g/dL (6.4-8.2); Sodium Level 138 mmol/L (136-145)
[2020-10-21 09:21] VITALS: BP 118/77; PULSE 88; RESP 18
[2020-10-21 09:26] LABS: International Normalized Ratio 1.2; Prothrombin Time (Protime)PT. 14.2 SECONDS (11.7-14.9)
[2020-10-21 09:28] LABS: Partial Thromboplast Time 30.6 Seconds (24.1-36.2)
[2020-10-21 10:00] VITALS: BP 128/103; PULSE 90; RESP 22; O2SAT 96
[2020-10-21] MEDS: oxyCODONE 5 MG Tablet PO (10:29)
[2020-10-21] MEDS: APIXABAN 5 MG TABLET 10 MG PO (10:37)
[2020-10-21 11:12] VITALS: BP 112/76; PULSE 86; RESP 20; O2SAT 96
== END 2020-10-21 11:13 | disposition home or self-care (01) ==
PROVIDERS: Emergency Provider Emergency Medicine
DX: I26.99 Other pulmonary embolism without acute cor pulmonale (principal); E66.9 Obesity, unspecified
CPT/HCPCS: 71275; 80053; 84484; 84703; 85025; 85610; 85730; 93005; 96361; 96374; 99285; J7030; Q9967; A4216